=== PATIENT | female | born 1985 ===

== ENCOUNTER 2022-07-28 15:15 | Inpatient (IN) | payer OTHER ==
[~2022-07-28] VITALS: Ht 121.9 cm; Wt 79.4 kg
[2022-08-03] MEDS ORDERED: PRENATAL TABLE1 EAC1 PO (03:49)
== END 2022-08-05 16:10 | disposition home or self-care (01) | DRG 807 ==
LOC: OB/GYN 08-03 03:31 → LDR 08-03 03:31 → OB/GYN 08-03 08:09
PROVIDERS: ADMIT Obstetrics & Gynecology Maternal & Fetal Medicine; ATTEND Obstetrics & Gynecology Maternal & Fetal Medicine
PROC: 10E0XZZ Delivery of Products of Conception, External Approach (ICD-10-PCS; principal; 2022-08-03)
PROC: 4A1HXCZ Monitoring of Products of Conception, Cardiac Rate, External Approach (ICD-10-PCS; 2022-08-03)
DX: O80 Encounter for full-term uncomplicated delivery (principal); Z37.0 Single live birth; Z3A.39 39 weeks gestation of pregnancy; Z20.822 Contact with and (suspected) exposure to COVID-19